=== PATIENT | female | born 1990 | race African-American/Black ===

== ENCOUNTER 2021-05-30 04:32 | Emergency (ER) | payer OTHER ==
[~2021-05-30] VITALS: Ht 167.6 cm; Wt 77.1 kg
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
[2021-05-30] MEDS ORDERED: NOHOMEMEDICATIONS (05:13)
[2021-05-30 05:27] VITALS: BP 117/78
== END 2021-05-30 05:40 | disposition home or self-care (01) ==
LOC: ER 04:32
DX: S80.212A Abrasion, left knee, initial encounter (principal); M25.572 Pain in left ankle and joints of left foot; V49.49XA Driver injured in collision with other motor vehicles in traffic accident, initial encounter; Y93.89 Activity, other specified; Y92.89 Other specified places as the place of occurrence of the external cause; Y99.8 Other external cause status